=== PATIENT | female | born 1990 | race Two or more races ===

== ENCOUNTER 2021-12-01 09:03 | Outpatient (CLI) | payer OTHER | END 2021-12-01 09:22 | disposition home or self-care (01) | LOC: RX STUDY 09:03 | PROVIDERS: ATTEND Obstetrics & Gynecology Reproductive Endocrinology | DX: N93.0 Postcoital and contact bleeding (principal) ==

== ENCOUNTER 2022-04-29 08:48 | Outpatient (CLI) | payer OTHER | END 2022-04-29 08:57 | disposition home or self-care (01) | LOC: RX STUDY 08:48 | PROVIDERS: ATTEND Obstetrics & Gynecology Reproductive Endocrinology | DX: N93.0 Postcoital and contact bleeding (principal) ==

== ENCOUNTER 2023-06-16 08:33 | Outpatient (CLI) | payer OTHER | END 2023-06-16 09:02 | disposition home or self-care (01) | LOC: RAD 08:33 | PROVIDERS: ATTEND Obstetrics & Gynecology Reproductive Endocrinology | DX: D25.0 Submucous leiomyoma of uterus (principal) ==